=== PATIENT | female | born 1970 | race Caucasian/White ===

== ENCOUNTER 2019-02-13 06:06 | Day surgery (SDC) | payer BC ==
[~2019-02-13] VITALS: Ht 162.6 cm; Wt 88.9 kg
[2019-02-13] MEDS ORDERED: ONDANSETRON HCL 4 MG/2 ML VIAL IVP ONE (07:40)
[2019-02-13] MEDS ORDERED: SEVOFLURANE 15 MIN GAS INH ONE (07:40)
[2019-02-13] MEDS ORDERED: LR 1,000 ML IV.SOLN IV ONE (07:40)
[2019-02-13] MEDS ORDERED: MIDAZOLAM HCL 5 MG/5 ML VIAL IVP ONE (07:40)
[2019-02-13] MEDS ORDERED: KETOROLAC TROMETHAMINE 30 MG VIAL IVP ONE (07:40)
[2019-02-13] MEDS ORDERED: PROPOFOL 200MG/ 20ML VIAL (DIPRIVAN) IV ONE (07:40)
[2019-02-13] MEDS ORDERED: NS IRRIG SOLN 1000 ML IR ONE (07:40)
[2019-02-13] MEDS ORDERED: fentaNYL CITRATE/PF 100 MCG/2 ML AMP IVP ONE (07:40)
[2019-02-13] MEDS ORDERED: ROCURONIUM BROMIDE 10 MG/ML (ZEMURON) IV ONE (07:40)
[2019-02-13] MEDS ORDERED: LR 1,000 ML IV SCH (08:18)
[2019-02-13] MEDS ORDERED: METOCLOPRAMIDE HCL 10 MG/2 ML VIAL IVP PRN (08:30)
[2019-02-13] MEDS ORDERED: MORPHINE 4 MG/ML INJ. SYRINGE IVP PRN ×3 (08:30)
[2019-02-13 09:38] VITALS: BP_SYST 119
[2019-02-13] MEDS ORDERED: ONDANSETRON HCL 4 MG/2 ML VIAL IM PRN (11:30)
[2019-02-13] MEDS ORDERED: OXYCODONE/ACETAMINOPHEN 5-325 TABLET PO PRN ×2 (11:30)
[2019-02-13] MEDS ORDERED: IBUPROFEN 800 MG TABLET PO PRN (11:30)
== END 2019-02-13 10:10 | disposition home or self-care (01) ==
LOC: SDS 06:06 → SMU 06:07 → SDS 10:10
PROVIDERS: ATTEND Obstetrics & Gynecology
DX: N92.0 Excessive and frequent menstruation with regular cycle (principal); G47.33 Obstructive sleep apnea (adult) (pediatric); N91.5 Oligomenorrhea, unspecified; E66.01 Morbid (severe) obesity due to excess calories; Z99.89 Dependence on other enabling machines and devices; Z83.3 Family history of diabetes mellitus; Z82.49 Family history of ischemic heart disease and other diseases of the circulatory system
CPT/HCPCS: 58563; 88305; J1885; J2250; J2405; J2704; J3010; J7120